=== PATIENT | male | born 1970 | race Caucasian/White ===

== ENCOUNTER 2016-08-08 03:33 | Emergency (ER) | payer OTHER ==
--- NOTE | ~2016-08-08 | CR127 ---
[facility] A Service of [facility] & [facility] RADIOLOGY TEXT RESULTS PATIENT: ERIKA HARRIS LOCATION: [facility] : 72 UNIT #: [id number] AGE: [address]: Martha Odom APRN SEX: M ORDER DR: [id number] [facility] [address] [place], [place] [address] [id number] E MR#: [id number] Acc #: [id number] NAME: ERIKA HARRIS : 1970 SEX: M STUDY DATE/TIME: 08/08/2016 4:23 UNIT: [facility] ROOM: STUDY DESCRIPTION: CR Foot Complete Min 3 View Rt Attending Physician: Martha Odom A.P.R.N. Ordering Physician: Ed Demetrio Olmos M.D. Primary Care Physician: No Primary Care Physician MEDICAL IMAGING REPORT This report is preliminary unless electronic signature is present EXAM 3-view right foot HISTORY Medial foot pain, bruising tonight object hit foot at work. FINDINGS 3 views of the right foot demonstrates mild degenerative changes first MTP joint. No fracture or dislocation. No radiopaque foreign body. Dictated by... Blake Torres M.D. THIS IS AN ELECTRONICALLY VERIFIED REPORT Blake Torres M.D. at 08/08/2016 5:53 AM RADHA/rip TD: 08/08/2016 05:40 JOB #: [id number] MEDICAL IMAGING REPORT Page 1 of 1 COPY
== END 2016-08-08 05:38 | disposition home or self-care (01) ==
LOC: CED 03:33
DX: S90.31XA Contusion of right foot, initial encounter (principal); W22.09XA Striking against other stationary object, initial encounter; Y92.69 Other specified industrial and construction area as the place of occurrence of the external cause; Y99.0 Civilian activity done for income or pay
CPT/HCPCS: 29540; 73630; 99283